=== PATIENT | female | born 1980 | race Two or more races ===

== ENCOUNTER 2018-03-02 00:45 | Emergency (ER) | payer BC ==
[2018-03-02 00:56] VITALS: O2SAT 100
[2018-03-02] MEDS ORDERED: Sodium Chloride 0.9% 1,000 ML IV STA (00:58)
[2018-03-02 01:29] LABS: BASO # 0.1 K/uL (0.0-0.2); BASO % 1.1 % (0.0-2.0); EOS # 0.1 K/uL (0.0-0.7); EOS % 2.1 % (0.0-4.0); HEMOGLOBIN 12.5 g/dL (12.0-16.0); LYMPH # 2.3 K/uL (1.0-4.3); LYMPH % 35.4 % (20.0-40.0); MEAN CELL VOLUME 91.4 fl (81.0-99.0); MEAN CORPUSCULAR HEMOGLOBIN 30.6 pg (27.0-31.0); MEAN CORPUSCULAR HGB CONC 33.4 g/dL (33.0-37.0); MEAN PLATELET VOLUME 8.8 fl (7.2-11.7); MONO # 0.5 K/uL (0.0-0.8); MONO % 7.7 % (0.0-10.0); NEUT # 3.5 K/uL (1.8-7.0); NEUT % 53.7 % (50.0-75.0); NRBC % 0.1 % (0.0-0.0); RBC 4.1 Mil/uL (3.80-5.20); RED CELL DISTRIBUTION WIDTH 13.2 % (11.5-14.5); WHITE BLOOD COUNT 6.5 K/uL (4.8-10.8)
[2018-03-02 01:38] LABS: ALB/GLOB RATIO 1.7 (1.0-2.1); ALBUMIN 4.6 g/dL (3.5-5.0); ALT/SGPT 26 U/L (9-52); AST/SGOT 49 U/L (14-36); BLOOD UREA NITROGEN 23 mg/dl (7-17); CALCIUM 9.3 mg/dL (8.4-10.2); GFR NON-AFRICAN AMERICAN > 60
--- NOTE | 2018-03-02 02:14 | ED PDOC ---
HPI: Psych/Substance Abuse Time Seen by Provider: 03/02/18 00:51 Chief Complaint (Nursing): Alcohol Ingestion Chief Complaint (Provider): Alcohol Ingestion ED Caveat: Intoxicated History Per: EMS History/Exam Limitations: intoxication Current Symptoms Are (Timing): Still Present Modifying Factor(s): Alcohol Additional Complaint(s): 37 year old female arrives to ED via EMS for an evaluation of alcohol intoxication. As per EMS, patient was "passed out" in a cab prior to arrival. Unable to obtain further medical history due to current condition. PCP: none provided Past Medical History Reviewed: Vital Signs, Unable To Obtain Vital Signs: Last Vital Signs Temp 97.5 F L 03/02/18 00:49 Pulse 97 H 03/02/18 00:49 Resp 16 03/02/18 00:49 BP 118/72 03/02/18 00:49 Pulse Ox 100 03/02/18 00:49 - Family History Family History: States: Unknown Family Hx - Allergies Allergies/Adverse Reactions: Allergies Allergy/AdvReac Type Severity Reaction Status Date / Time sulfur dioxide Allergy Mild RASH Verified 03/02/18 00:56 Review of Systems Review Of Systems: ROS cannot be obtained secondary to pt's inabilty to answer questions. Physical Exam - Reviewed Nursing Documentation Reviewed: Yes Vital Signs Reviewed: Yes - Physical Exam Neurologic/Psych: Positive for: Alert, Gait (unsteady), Other (slurred speech; (+) AOB ). Negative for: Oriented, Motor/Sensory Deficits - Laboratory Results Result Diagrams: 03/02/18 01:23 03/02/18 01:23 - ECG O2 Sat by Pulse Oximetry: 100 (RA) Pulse Ox Interpretation: Normal Medical Decision Making Medical Decision Making: Initial Impression: 37 year old female with alcohol intoxication. Initial Plan: * Labs * Accucheck * IV fluids * Zofran 4mg IV Time: 111 --Accucheck: 108 mg/dL --Alcohol: 239 mg/dL Time: 330 --Patient is awake, alert, oriented x3, and requesting to go home. Speech is noted as clear with steady gait. Patient will be discharged home. Counseling was provided and all questions were answered regarding diagnosis. There is agreement to discharge plan. Return if symptoms persist or worsen. Clinical Impression: Alcohol abuse with intoxication Scribe Attestation: Documented by Angelic Song, acting as a scribe for Tre Garcia MD. Provider Scribe Attestation: All medical record entries made by the Scribe were at my direction and personally dictated by me. I have reviewed the chart and agree that the record accurately reflects my personal performance of the history, physical exam, medical decision making, and the department course for this patient. I have also personally directed, reviewed, and agree with the discharge instructions and disposition. Disposition - Clinical Impression Clinical Impression: Alcohol abuse with intoxication - Patient ED Disposition Is Patient to be Admitted: No Counseled Patient/Family Regarding: Studies Performed, Diagnosis - Disposition Disposition: Routine/Home Disposition Time: 03:31 Condition: STABLE Instructions: Alcohol Use - When Is Drinking a Problem? Forms: [employer] (H[place]ian)
[2018-03-02 06:56] VITALS: BP 103/58; PULSE 94; RESP 18; TEMP 97.7
== END 2018-03-02 03:50 | disposition home or self-care (01) ==
LOC: H.ER 00:45
DX: F10.129 Alcohol abuse with intoxication, unspecified (principal)
CPT/HCPCS: 80053; 82948; 85025; 96374; 99284; G0480; J2405; J7030